=== PATIENT | male | born 1995 | race Caucasian/White ===

== ENCOUNTER → 2016-12-10 | Outpatient (CLI) | payer BC ==
--- NOTE | 2016-12-10 15:58 | DIAGNOSTIC IMAGING REPORT ---
RIGHT HAND MIN 3 VIEWS ROUTINE CLINICAL HISTORY: Right hand pain status post trauma COMPARISON: None. DISCUSSION: No fractures or dislocations are visualized. No radiopaque foreign bodies are visualized. IMPRESSION: No fractures identified. Electronically signed by: Dk Reynolds M.D. 12/10/2016 3:57 PM Dictated Date/Time: 12/10/2016 3:56 PM
== END | disposition home or self-care (01) ==
LOC: C.RAD1850 15:39
PROVIDERS: ATTEND Family Medicine
DX: M79.641 Pain in right hand (principal); S69.91XA Unspecified injury of right wrist, hand and finger(s), initial encounter; X58.XXXA Exposure to other specified factors, initial encounter